=== PATIENT | female | born 1975 | race Hispanic/Latino ===

== ENCOUNTER 2017-08-19 08:59 | Day surgery (SDC) | payer BC ==
[2015-05-08 13:36] VITALS: BMI 26.1
[2017-08-19] MEDS ORDERED: Lactated Ringer's 1,000 ML IV ONE (12:30)
[2017-08-19] MEDS ORDERED: Propofol 10 mg/ml Inj (20 ML) ONE (12:33)
[2017-08-19] MEDS ORDERED: Lidocaine 2% MPF (5 ml) Inj ONE (12:33)
[2017-08-19 13:16] VITALS: BP 101/59; PULSE 81; RESP 16; TEMP 97.5; O2SAT 99
== END 2017-08-19 13:46 | disposition home or self-care (01) ==
LOC: H.ENDO 08:59
PROVIDERS: ATTEND Internal Medicine Gastroenterology
DX: R10.31 Right lower quadrant pain (principal); K64.8 Other hemorrhoids
CPT/HCPCS: 45378; J2704; J7120

== ENCOUNTER 2018-02-15 17:29 | Emergency (ER) | payer BC ==
[2018-02-15 17:30] VITALS: BMI 26.1
[2018-02-15 17:35] VITALS: BP 137/77; PULSE 98; RESP 16; TEMP 98.7; O2SAT 100
--- NOTE | 2018-02-15 18:02 | ED PDOC ---
HPI: General Adult Time Seen by Provider: 02/15/18 17:50 Chief Complaint (Nursing): Lower Extremity Problem/Injury Chief Complaint (Provider): leg pain History Per: Patient Additional Complaint(s): 42-year-old female currently 17 weeks presents with right ankle pain status post slip and fall about 1 hour prior to arrival. Patient is not sure if she injured her abdomen directly but once to make sure that the baby is okay. She denies head injury or loss of consciousness. She has not been able to put any weight on right ankle since time of injury. No other injury sustained as a result of fall. PMD: [facility] Past Medical History Reviewed: Historical Data, Nursing Documentation, Vital Signs Vital Signs: Last Vital Signs Temp 98.7 F 02/15/18 17:32 Pulse 98 H 02/15/18 17:32 Resp 16 02/15/18 17:32 BP 137/77 02/15/18 17:32 Pulse Ox 100 02/15/18 20:49 - Medical History PMH: Hypothyroidism, Seizures (LAST SEIZURE STOPPED AGE 15 S/P TRAUMA) - Surgical History Other surgeries: ovarian cyst removal - Family History Family History: States: No Known Family Hx - Living Arrangements Living Arrangements: With Family - Social History Current smoker - smoking cessation education provided: No Alcohol: None Drugs: Denies - Home Medications Home Medications: Ambulatory Orders Medication Instructions Recorded Levothyroxine [Synthroid] 1 tab PO DAILY 08/19/17 - Allergies Allergies/Adverse Reactions: Allergies Allergy/AdvReac Type Severity Reaction Status Date / Time phenobarbital Allergy DIZZINESS Verified 02/15/18 17:36 Review of Systems ROS Statement: Except As Marked, All Systems Reviewed And Found Negative Gastrointestinal: Negative for: Abdominal Pain Genitourinary Female: Negative for: Vaginal Bleeding Musculoskeletal: Positive for: Other (right foot and ankle injury) Physical Exam - Reviewed Nursing Documentation Reviewed: Yes Vital Signs Reviewed: Yes - Physical Exam Appears: Positive for: Well, Non-toxic, No Acute Distress Skin: Positive for: Normal Color. Negative for: Pallor, Rash Eye Exam: Positive for: Normal appearance Neck: Positive for: Normal Cardiovascular/Chest: Positive for: Regular Rate, Rhythm Respiratory: Positive for: Normal Breath Sounds Gastrointestinal/Abdominal: Positive for: Other (Gravid nontender abdomen) Back: Negative for: L CVA Tenderness, R CVA Tenderness, Vertebral Tenderness Extremity: Positive for: Other (Moderate swelling and tenderness to right foot and ankle region, no obvious deformity noted, palpable distal pulses) Neurologic/Psych: Positive for: Alert, Oriented - ECG O2 Sat by Pulse Oximetry: 100 Pulse Ox Interpretation: Normal - Other Rad OB US X-Ray: Read By Radiologist X-Ray Interpretation: see below Medical Decision Making Medical Decision Makin42 year old female with right ankle pain Plan: PO tylenol OB US US: FINDINGS: Fetus: Single live intrauterine gestation. Heart rate: heart rate measures 140 beats per minute. Presentation: Presentation is cephalic. Placenta: The placenta is fundal. No abruption. Amniotic fluid: Unremarkable. BIOMETRICS Gestational age: Estimated gestational age 17 weeks 5 days based on today's measurements with an estimated due date of 07/21/2018. Estimated due date based on LMP 07/27/2018. There has been appropriate interval growth. EFW: Estimated weight measures 201 g/7 ounces (88%) BPD: 3.9 cm, 17 weeks 5 days HC: 14.2 cm, 17 weeks 4 days AC: 11.8 cm, 17 weeks 4 days FL: 2.5 cm, 17 weeks 5 days IMPRESSION: Single live intrauterine gestation with a gestational age of 17 weeks 5 days based on today's measurements with an estimated due date of 07/21/2018. Estimated due date based on LMP 07/27/2018. There has been appropriate interval growth. Patient was offered x-ray with shielding of the abdomen but she declined. She is concerned about potential radiation exposure risk. Patient is requesting surgical boot. Podiatry consult obtained. Disposition - Clinical Impression Clinical Impression: Fall, Ankle injury - Patient ED Disposition Is Patient to be Admitted: Transfer of Care - Disposition Disposition: Transfer of Care Disposition Time: 20:49 Condition: STABLE Forms: Prevently ([place]ese) Patient Signed Over To: Calos Rodriguez Handoff Comments: Signed out pending podiatry consult and final disposition
--- NOTE | 2018-02-15 20:22 | US ---
EXAM: US After First Trimester, Transabdominal EXAM DATE/TIME: 02/15/2018 6:12 PM CLINICAL HISTORY: 42 years old, female; Injury or trauma; Fall; Initial encounter; Swelling (edema); Lower; Injury date: 02/15/2018; ; Additional info: 17 weeks , fall, injury to rt ankle TECHNIQUE: Real-time transabdominal obstetrical ultrasound of the maternal pelvis and a second or third trimester with image documentation. COMPARISON: No relevant prior studies available. FINDINGS: Fetus: Single live intrauterine gestation. Heart rate: heart rate measures 140 beats per minute. Presentation: Presentation is cephalic. Placenta: The placenta is fundal. No abruption. Amniotic fluid: Unremarkable. BIOMETRICS Gestational age: Estimated gestational age 17 weeks 5 days based on today's measurements with an estimated due date of 07/21/2018. Estimated due date based on LMP 07/27/2018. There has been appropriate interval growth. EFW: Estimated weight measures 201 g/7 ounces (88%) BPD: 3.9 cm, 17 weeks 5 days HC: 14.2 cm, 17 weeks 4 days AC: 11.8 cm, 17 weeks 4 days FL: 2.5 cm, 17 weeks 5 days IMPRESSION: Single live intrauterine gestation with a gestational age of 17 weeks 5 days based on today's measurements with an estimated due date of 07/21/2018. Estimated due date based on LMP 07/27/2018. There has been appropriate interval growth.
--- NOTE | 2018-02-15 21:26 | ED PDOC ---
- ECG O2 Sat by Pulse Oximetry: 100 - Progress ED Course And Treament: seen by podiatry placed in posterior splint and given surgical boot. Advised walker and tylenol prn pain Disposition - Clinical Impression Clinical Impression: Fall, Ankle injury - POA Present On Arrival: None - Disposition Referrals: Aisha Drew MD [Staff Provider] - Disposition: Routine/Home Disposition Time: 21:25 Condition: STABLE Prescriptions: Acetaminophen [Acetaminophen Extra Strength] 2 tab PO Q6 PRN #24 tablet PRN Reason: Pain, Moderate (4-7) Walker [Ultra-Light Rollator] 1 each MC PRN PRN #1 each PRN Reason: Pain, Moderate (4-7) Instructions: Ankle Sprain (DC)
--- NOTE | 2018-02-15 22:36 | CP.PCM.CON ---
History of Present Illness - History of Present Illness History of Present Illness: Consult notes for attending Rajendra Meyers 42 y/o F patient with no PMH seen and evaluated at the bedside for pain and swelling in her right ankle. Patient states that today while playing with her child she tripped down and twisted her ankle. Patient states that she felt pain immediately. She states that the pain was excruciating 9/10 on VAS scale. patient states that she can't bear weight on her left foot. Patient states that she refuses to do X-ray on her ankle as she is 17 weeks. Patient states that she took Tylenol 325 mg but it didn't help. Patient was in pain. Patient is AAO X 3. Patient denies any other pedal complaint. Patient denies any F/N/V/C or SOB recently. Review of Systems - Review of Systems Review of Systems: As per HPI Past Patient History - Past Medical History & Family History Past Medical History?: Yes - Past Social History Alcohol: None Drugs: Denies - NEUROLOGICAL Hx Seizures: Yes (LAST SEIZURE STOPPED AGE 15 S/P TRAUMA) - ENDOCRINE/METABOLIC Hx Hypothyroidism: Yes - PSYCHIATRIC Hx Substance Use: No - SURGICAL HISTORY Hx Surgeries: Yes Hx Section: Yes Other/Comment: OVARIAN CYSTECTOMY - ANESTHESIA Hx Anesthesia: Yes Hx Anesthesia Reactions: No Hx Malignant Hyperthermia: No Meds Home Medications: Home Medication List Medication Instructions Recorded Confirmed Type Acetaminophen [Acetaminophen Extra 2 tab PO Q6 PRN #24 tablet 02/15/18 Rx Strength] Walker [Ultra-Light Rollator] 1 each MC PRN PRN #1 each 02/15/18 Rx Allergies/Adverse Reactions: Allergies Allergy/AdvReac Type Severity Reaction Status Date / Time phenobarbital Allergy DIZZINESS Verified 02/15/18 17:36 Physical Exam - Constitutional Appears: Well, Non-toxic, No Acute Distress - Head Exam Head Exam: ATRAUMATIC, NORMOCEPHALIC - Extremities Exam Additional comments: Lower extremity focused exam: Vasc: DP/PT 2/4 b/l. Cap refill < 3 sec in all digits. Temp gradient warm to cool. Right perimalleolar non pitting edema lateral > mediial . Neuro: Protective and gross sensation are intact. Derm: No open lesions, No clinical signs of active bacterial infection. Msk: Pain on palpating the right medial and lateral malleoli lateral > medial. Pain and guarding with right ankle ROM - Neurological Exam Neurological exam: Alert, Oriented x3 - Psychiatric Exam Psychiatric exam: Normal Affect, Normal Mood Results - Vital Signs Recent Vital Signs: Last Vital Signs Temp 98.7 F 02/15/18 17:32 Pulse 98 H 02/15/18 17:32 Resp 16 02/15/18 17:32 BP 137/77 02/15/18 17:32 Pulse Ox 100 02/15/18 21:27 Assessment & Plan - Assessment and Plan (Free Text) Assessment: 44 Y/O F patient evaluated for Right ankle sprain/fracture. Plan: Patient seen and evaluated in the ED. Plan discussed in details with attending Rajendra Meyers Posterior splint applied for the Left LE. Patient instructed to be NWB and to use walker for ambulation. Patient instructed to use Tylenol for pain. Patient instructed to elevate her leg and apply icing. Patient expressed verbal understanding. Patient to F/U in [facility]ers clinic. - Date & Time Date: 02/15/18 Time: 22:37
== END 2018-02-15 21:49 | disposition home or self-care (01) ==
LOC: H.ER 17:29
DX: S93.401A Sprain of unspecified ligament of right ankle, initial encounter (principal); W01.0XXA Fall on same level from slipping, tripping and stumbling without subsequent striking against object, initial encounter; Z3A.17 17 weeks gestation of pregnancy; E03.9 Hypothyroidism, unspecified